=== PATIENT | male | born 1950 | race American Indian/Alaskan Native ===

== ENCOUNTER 2017-02-16 11:44 | Day surgery (SDC) | payer BC, MEDICARE ==
[~2017-02-16 11:44] MED LIST: NACL 0.9% 1000 ML 1,000 ML IV SCH; PEPCID PO NR
--- NOTE | 2017-02-16 12:37 | Anesthesia Consultation ---
Anesthesia Consult and Med Hx Date of service: 02/16/17 - Airway Anesthetic Teeth Evaluation: Dentures, Edentulous ROM Head & Neck: Adequate Mental/Hyoid Distance: Adequate Mallampati Class: Class II Intubation Access Assessment: Probably Good - Pulmonary Exam CTA: Yes - Cardiac Exam Cardiac Exam: RRR - Pre-Operative Health Status ASA Pre-Surgery Classification: ASA2 Proposed Anesthetic Plan: General - Pre-Anesthesia Comment Pre-Anesthesia Comments: Hx of colon polyps sp colectomy around 7 years ago - Pulmonary Hx Smoking: No Hx Sleep Apnea: No (DELMY PRE SCREEN HIGH RISK) - Cardiovascular System Hx Hypertension: Yes (x 15 yrs, took clonidine and lisinopril this AM) Hx Heart Attack/AMI: No - Central Nervous System Hx Seizures: No CVA: No Hx Psychiatric Problems: No - Gastrointestinal Hx Gastroesophageal Reflux Disease: No - Endocrine Hx Renal Disease: Yes (stage II) Hx Non-Insulin Dependent Diabetes: Yes - Hematic Hx Sickle Cell Disease: No - Other Systems Hx Cancer: No - Additional Comments Anesthesia Medical History Comments: NAC
--- NOTE | 2017-02-16 12:38 | Anesthesia Day of Surgery ---
Anesthesia Day of Surgery - Day of Surgery Patient Examined: Yes Patient H&P Reviewed: Yes Patient is NPO: Yes Pulmonary Clearance: Yes
[2017-02-16] MEDS ORDERED: DIPRIVAN 10 MG/ML IV ONE ×2 (13:10→14:00)
[2017-02-16] MEDS ORDERED: DILAUDID ONE (13:10)
[2017-02-16] MEDS ORDERED: OMNIPAQUE 300 MG/50 ML (CATH LAB) IV ONE (13:36)
[2017-02-16] MEDS ORDERED: WATER FOR IRRIG STERILE IR ONE (13:36)
[2017-02-16] MEDS ORDERED: ANCEF/STERILE WATER 2 GM/20 ML 2 GM/20 ML SYRINGE IV NR (14:00)
--- NOTE | 2017-02-16 14:18 | Post Anesthesia Evaluation ---
- Post Anesthesia Evaluation Patient Participated: Yes Airway Patent: Yes Stable Respiratory Function: Yes Nausea/Vomiting: No Temp > 96.8F: Yes Pain Manageable: Yes Adequeate Hydration: Yes Anesthesia Complications: No Block Receding Appropriately: Not Applicable Patient on Ventilator: No
[2017-02-16] MEDS ORDERED: XYLOCAINE MPF 2% ONE (14:22)
[2017-02-16] MEDS ORDERED: ZOFRAN ONE (14:23)
[2017-02-16] MEDS ORDERED: LASIX ONE (14:23)
--- NOTE | 2017-02-16 14:46 | Post Operative Note ---
Date of procedure: 02/16/17 Pre-op diagnosis: hematuria Post-op diagnosis: same Findings: stricture erythema Procedure: cysto dil bx rpgs Anesthesia: GETA Surgeon: MIKE CELESTIN Estimated blood loss: none Pathology: list (bladder) Specimen disposition: to lab Condition: stable Disposition: PACU
--- NOTE | 2017-02-16 14:48 | Discharge Summary ---
Short Stay Discharge Plan Activity: other (no straining ) Weight Bearing Status: Full Weight Bearing Diet: low fat, low cholesterol, low salt Special Instructions: other (inc fluids ) Durable Medical Equipment Needed Upon Discharge: other (teach joya care ) Follow up with: VANDANA YIP MD [Primary Care Provider] - 7 Days MIKE CELESTIN MD [Staff Physician] - 02/21/17
--- NOTE | 2017-02-16 15:13 | Operative Report ---
PREOPERATIVE DIAGNOSIS: Hematuria. POSTOPERATIVE DIAGNOSIS: Urethral stricture and small diverticulum. PROCEDURE: Cystoscopy, dilatation, bladder biopsy, retrograde. SURGEON: Darnell Ramos MD FINDINGS: This is a gentleman with hematuria. He now presents for cystoscopy. DESCRIPTION OF PROCEDURE: The patient was brought to the operating room and placed on the table. Following induction of anesthesia, placed in lithotomy position, prepped and draped in usual sterile fashion. Cystourethroscopy showed a narrowed urethra, which was bypassed. It looked like there was some previous scarring. There was approximately 3/4 of a rim of scar tissue. Once we got passed that just at the membranous urethra that looked like there was a small diverticulum with small opening. We will probably have to get a retrograde urethrogram at a later date. The prostatic urethra was normal. Bladder neck was open. The bladder was 2+ trabeculated. Orifices were delicate and small. Retrograde with the cone-tip on the right showed good drainage, no persistent filling defects under fluoroscopy. On the left, we had to use wire and open-ended showed good drainage, good filling, no persistent filling defects. There was slight erythema in the posterior wall, which was biopsied and cauterized with the Bovie. The patient tolerated the procedure well. No complication. No significant bleeding. Leach was left #16, be removed in 3-5 days, brought to recovery in stable condition. JOB# [id number] GT/BRANDY
[2017-02-16] MEDS ORDERED: DILAUDID IV PRN (15:48)
[2017-02-16] MEDS ORDERED: ZOFRAN IV PRN (15:48)
[2017-02-16 15:55] VITALS: BP 138/82
--- NOTE | 2017-02-16 16:25 | Fluoroscopy Report ---
RETROGRADE PYELOGRAM: History: Hematuria. There is adequate filling of the ureters and intrarenal collecting systems with no filling defects or anatomic abnormalities identified.
== END 2017-02-16 11:45 | disposition home or self-care (01) ==
LOC: OR 11:44
PROVIDERS: ATTEND Urology
DX: N30.21 Other chronic cystitis with hematuria (principal); N35.9 Urethral stricture, unspecified; N36.1 Urethral diverticulum; N32.89 Other specified disorders of bladder; E11.22 Type 2 diabetes mellitus with diabetic chronic kidney disease; I12.9 Hypertensive chronic kidney disease with stage 1 through stage 4 chronic kidney disease, or unspecified chronic kidney disease; N18.2 Chronic kidney disease, stage 2 (mild); Z79.899 Other long term (current) drug therapy; Z79.84 Long term (current) use of oral hypoglycemic drugs; Z88.2 Allergy status to sulfonamides
CPT/HCPCS: 52005; 74420; 82962; 88305; C1726; C1758; J0690; J1170; J1940; J2405; J2704; J7030; Q9967; J1815